=== PATIENT | male | born 1985 | race Caucasian/White ===

== ENCOUNTER 2019-02-09 16:39 | Emergency (ER) | payer OTHER ==
--- NOTE | 2019-02-09 17:22 | ED ---
Skin Complaint - HPI Summary HPI Summary: 33 year old male presents with a rash for the past couple days. They stayed at a hotel a couple days ago. does not have similar rash. No new soaps or products. States noticed rash first on his hip. He states he has noticed new lesions in scattered groups on his upper back and arms. has one cluster on his ankle. He states the rash is itchy. No fevers or chills. He did have the MMR vaccine a couple weeks ago. Denies any other symptoms. Never had this rash before. he has history of shingles. - History of Current Complaint Chief Complaint: EDRashSkinAbscess Time Seen by Provider: 02/09/19 17:10 Stated Complaint: RASH PER PT Pain Intensity: 0 - Allergy/Home Medications Allergies/Adverse Reactions: Allergies Allergy/AdvReac Type Severity Reaction Status Date / Time No Known Allergies Allergy Verified 02/09/19 16:46 PMH/Surg Hx/FS Hx/Imm Hx Endocrine/Hematology History: Denies: Hx Anticoagulant Therapy Respiratory History: Denies: Hx Asthma Infectious Disease History: No Infectious Disease History: Denies: Traveled Outside the [place] in Last 30 Days - Family History Known Family History: Positive: Non-Contributory - Social History Alcohol Use: Occasionally Smoking Status (MU): Never Smoked Tobacco Review of Systems Negative: Fever Negative: Chest Pain Negative: Shortness Of Breath Positive: Rash All Other Systems Reviewed And Are Negative: Yes Physical Exam Triage Information Reviewed: Yes Vital Signs On Initial Exam: Initial Vitals Temp Pulse Resp BP Pulse Ox 98.2 F 72 18 128/80 100 02/09/19 16:42 02/09/19 16:42 02/09/19 16:42 02/09/19 16:42 02/09/19 16:42 Vital Signs Reviewed: Yes Appearance: Positive: Well-Appearing Skin: Positive: Warm, Dry, Other - bite like lesions in groups of three on side abd, arms, and ankle Head/Face: Positive: Normal Head/Face Inspection Eyes: Positive: Normal, Conjunctiva Clear ENT: Positive: Pharynx normal Respiratory/Lung Sounds: Positive: Clear to Auscultation, Breath Sounds Present Cardiovascular: Positive: Normal, RRR Musculoskeletal: Positive: Normal Neurological: Positive: Normal Psychiatric: Positive: Normal Procedures - Sedation Patient Received Moderate/Deep Sedation with Procedure: No Diagnostics - Vital Signs Vital Signs Temp Pulse Resp BP Pulse Ox 02/09/19 16:42 98.2 F 72 18 128/80 100 - Laboratory Lab Statement: Any lab studies that have been ordered have been reviewed, and results considered in the medical decision making process. Course/Dx - Course Course Of Treatment: 33 year old male presents with a rash for the past couple days. They stayed at a hotel a couple days ago. does not have similar rash. No new soaps or products. States noticed rash first on his hip. He states he has noticed new lesions in scattered groups on his upper back and arms. has one cluster on his ankle. He states the rash is itchy. No fevers or chills. He did have the MMR vaccine a couple weeks ago. Denies any other symptoms. Never had this rash before. On exam has bug bite-like lesions on upper arm and back that are in clusters. no other abnormality seen on physical exam. appears most like bed bugs. Told to wash all clothing and bedding. Patient understands and agrees plan. - Differential Diagnoses - Skin Complaint Differential Diagnoses: Contact Dermatitis, Scabies, Viral Exanthem - Diagnoses Provider Diagnoses: Rash Discharge ED - Sign-Out/Discharge Documenting (check all that apply): Patient Departure - Discharge Plan Condition: Good Disposition: HOME Patient Education Materials: Bed Bugs (ED) Referrals: No Primary Care Phys,NOPCP [Primary Care Provider] - Additional Instructions: your rash appears most like bed bugs at this time take benadryl every 6 hours for itchiness apply hydrocortisone to area for itchiness follow up with primary Return to ED if develop any new or worsening symptoms - Billing Disposition and Condition Condition: GOOD Disposition: Home
[2019-02-09 17:38] VITALS: BP 126/76
== END 2019-02-09 17:37 | disposition home or self-care (01) ==
LOC: ED 16:39
DX: R21 Rash and other nonspecific skin eruption (principal)
CPT/HCPCS: 99281